=== PATIENT | female | born 1970 | race Caucasian/White ===

== ENCOUNTER → 2016-06-18 | Outpatient (CLI) | payer OTHER ==
[~2016-06-18] MED LIST: CHOL1000 PO; CHOL2000 PO; MISCCAP80 PO; NAPR1TAB9 PO; NPR500 PO; SULF800T23 PO
== END | disposition home or self-care (01) ==
LOC: C.LABSPEC 10:30
PROVIDERS: ATTEND Nurse Practitioner Family
DX: R39.9 Unspecified symptoms and signs involving the genitourinary system (principal)

== ENCOUNTER → 2016-06-29 | Outpatient (CLI) | payer OTHER ==
[2016-06-29 16:56] LABS: BASO % 0.4 %; BASO ABS # 0.02 K/uL (0-0.2); COMPLETE YES; EOS % 1.4 %; IG% 0.2 %; LYMPH % 34.2 %; LYMPH ABS # 1.89 K/uL (1.2-3.4); MEAN CELL VOLUME 85.9 fL (80-100); MEAN CORPUSCULAR HEMOGLOBIN 28.8 pg (25-34); MEAN CORPUSCULAR HGB CONC 33.6 g/dl (32-36); MEAN PLATELET VOLUME 10.4 fL (7.4-10.4); MONO % 10.3 %; NEUT % 53.5 %; PLATELET COUNT 332 K/uL (130-400); RED BLOOD COUNT 4.89 M/uL (4.2-5.4); WHITE BLOOD COUNT 5.53 K/uL (4.8-10.8)
[2016-06-29 17:07] LABS: BLOOD UREA NITROGEN 9 mg/dl (7-18); BUN/CREATININE RATIO 11.2 (10-20); CALCIUM 8.9 mg/dl (8.5-10.1); CARBON DIOXIDE 28 mmol/L (21-32); CHLORIDE 104 mmol/L (98-107); CREATININE 0.82 mg/dl (0.60-1.20); GLUCOSE 104 mg/dl (70-99); POTASSIUM 4.2 mmol/L (3.5-5.1); SODIUM 141 mmol/L (136-145)
[2016-07-02 13:53] LABS: MICROSOMAL AB 2 IU/ML (<9)
== END | disposition home or self-care (01) ==
LOC: C.LABBC 14:55
PROVIDERS: ATTEND Family Medicine
DX: E04.0 Nontoxic diffuse goiter (principal); E55.9 Vitamin D deficiency, unspecified; G47.00 Insomnia, unspecified

== ENCOUNTER → 2016-07-03 | Outpatient (CLI) | payer OTHER ==
--- NOTE | 2016-07-03 13:51 | DIAGNOSTIC IMAGING REPORT ---
ULTRASOUND OF THE THYROID GLAND CLINICAL HISTORY: Thyroid goiter. COMPARISON STUDY: CT scan of the neck dated 01/29/2011. TECHNIQUE: Real-time, grayscale, and color flow sonography of the thyroid gland is performed utilizing a high-frequency linear transducer. Images are reviewed in the transverse and longitudinal planes. FINDINGS: Right lobe: The right lobe of the thyroid gland is normal in size and homogeneous in echotexture, measuring 4.5 x 2.2 x 1.8 cm. Left lobe: The left lobe of the thyroid gland is normal in size and homogeneous in echotexture, measuring 4.3 x 1.8 x 1.9 cm. A hyperechoic nodule in the posterior lower pole measures 0.5 x 0.3 x 0.5 cm. Isthmus: The thyroid isthmus is normal in appearance and measures 0.4 cm in AP diameter. IMPRESSION: 1. The thyroid gland is normal in size and echotexture. 2. A subcentimeter hyperechoic nodule is incidentally noted in the left lower pole. This does not meet sonographic criteria for fine-needle aspiration and can be followed sonographically if clinically warranted. Electronically signed by: Rowdy Reynoso M.D. 07/03/2016 1:50 PM Dictated Date/Time: 07/03/2016 1:48 PM
== END | disposition home or self-care (01) ==
LOC: C.ULTR 13:19
PROVIDERS: ATTEND Internal Medicine Geriatric Medicine
DX: E04.0 Nontoxic diffuse goiter (principal)

== ENCOUNTER → 2016-07-10 | Outpatient (CLI) | payer OTHER | END | disposition home or self-care (01) | LOC: C.LABPBG 13:16 | PROVIDERS: ATTEND Obstetrics & Gynecology | DX: F39 Unspecified mood [affective] disorder (principal) ==

== ENCOUNTER → 2016-08-17 | Outpatient (CLI) | payer OTHER ==
--- NOTE | 2016-08-17 15:01 | DIAGNOSTIC IMAGING REPORT ---
Brain MRI WITHOUT CONTRAST HISTORY: Mental status change ALBERTO TECHNIQUE: Multiplanar multisequence MRI of the brain was performed without the use of contrast. COMPARISON STUDY: 05/16/2010 FINDINGS: There are no areas of restricted diffusion to suggest acute infarction. The midline structures are intact. The paranasal sinuses are clear. The mastoid air cells are clear. The ventricles and sulci are within normal limits for age. There is no mass, hematoma, midline shift. The major vascular flow-voids at the skull base are well maintained. IMPRESSION: No acute intracranial abnormality. Electronically signed by: José Antonio Martinez M.D. 08/17/2016 3:00 PM Dictated Date/Time: 08/17/2016 2:58 PM
== END | disposition home or self-care (01) ==
LOC: C.OPENMRI 13:50
PROVIDERS: ATTEND Internal Medicine Geriatric Medicine
DX: R41.82 Altered mental status, unspecified (principal)

== ENCOUNTER 2016-09-18 11:00 | Emergency (ER) | payer OTHER ==
[~2016-09-18] VITALS: Ht 157.5 cm; Wt 70.3 kg
[~2016-09-18 11:00] MED LIST changes: -CHOL1000 PO; -CHOL2000 PO; -MISCCAP80 PO
[2016-09-18 11:09] VITALS: TEMP 36.8; Ht 157.5 cm; Wt 70.3 kg
[2016-09-18] MEDS ORDERED: CHOL2000 PO (11:16)
[2016-09-18] MEDS ORDERED: MISCCAP80 PO (11:16)
[2016-09-18] MEDS ORDERED: CHOL1000 PO (11:16)
[2016-09-18 12:13] LABS: BASO % 0.2 %; BASO ABS # 0.01 K/uL (0-0.2); COMPLETE YES; HEMATOCRIT 43.3 % (37-47); IG% 0.3 %; LYMPH % 27.1 %; LYMPH ABS # 1.59 K/uL (1.2-3.4); MEAN CELL VOLUME 82.3 fL (80-100); MEAN CORPUSCULAR HEMOGLOBIN 28.1 pg (25-34); MEAN CORPUSCULAR HGB CONC 34.2 g/dl (32-36); MEAN PLATELET VOLUME 9.7 fL (7.4-10.4); MONO % 11.6 %; NEUT % 59.8 %; PLATELET COUNT 299 K/uL (130-400); RED BLOOD COUNT 5.26 M/uL (4.2-5.4); WHITE BLOOD COUNT 5.87 K/uL (4.8-10.8)
[2016-09-18 12:30] LABS: ALT/SGPT 56 U/L (12-78); BLOOD UREA NITROGEN 12 mg/dl (7-18); BUN/CREATININE RATIO 15.7 (10-20); CALCIUM 9.3 mg/dl (8.5-10.1); CARBON DIOXIDE 29 mmol/L (21-32); CHLORIDE 106 mmol/L (98-107); CREATININE 0.77 mg/dl (0.60-1.20); GLUCOSE 102 mg/dl (70-99); SODIUM 141 mmol/L (136-145)
[2016-09-18 12:32] LABS: ALKALINE PHOSPHATASE 103 U/L (45-117); AST/SGOT 30 U/L (15-37)
--- NOTE | 2016-09-18 12:32 | DIAGNOSTIC IMAGING REPORT ---
FLUOROSCOPIC IMAGES OF THE LUMBAR SPINE CLINICAL HISTORY: Lower back pain. COMPARISON: Lumbar spine radiographs June 06, 2011. FLUOROSCOPY TIME: FINDINGS: Alignment of lumbar spine is anatomic. There is no fracture or suspicious lesion. Mild endplate osteophytosis is noted at several levels. IMPRESSION: 1. No lumbar spine fracture or subluxation. 2. Mild multilevel degenerative disc disease and facet arthrosis of the lumbar spine. Electronically signed by: Erasmo Carrillo M.D. 09/18/2016 12:31 PM Dictated Date/Time: 09/18/2016 12:30 PM
[2016-09-18 14:09] VITALS: BP 129/81; PULSE 68; O2SAT 98
--- NOTE | 2016-09-18 17:49 | EMERGENCY ROOM VISIT NOTE ---
History Report prepared by Adan: Lillian Bernabe Under the Supervision of: Dr. Lemuel Mckeon D.O. First contact with patient: 11:42 Chief Complaint: LEG PAIN,LEG INJURY Stated Complaint: LEG PAIN, BUTT PAIN, SICK IN STOMACH History of Present Illness The patient is a 46 year old female who presents to the Emergency Room with complaints of worsening leg pain in the past month. She has had leg pain for the past 7 years, but it has worsened in the past month. She reports diaphoresis with the pain. She has lower energy and her legs ache to walk. Her knees feel weak and she has the pain on the bottoms of her feet. There is a rash on her rear and she has pain when she bends over in her bilateral gluteus muscles. She has some lower back pain which might be arthritis. She also has left wrist pain. She denies any focal weakness, fever, dysuria, or numbness in groin. She is able to move her bowels and urinate normally. She was checked for Lyme recently which was negative. She denies any history of diabetes. She does follow with dermatology. She has a previous diagnosis of fibromyalgia. Source of History: patient Onset: 1 month Position: leg (bilateral) Timing: worsening Modifying Factors (Worsening): other (walking) Associated Symptoms: + diaphoresis, + rash Note: Pt reports low energy, weak knees, foot pain. Review of Systems See HPI for pertinent positives & negatives. A total of 10 systems reviewed and were otherwise negative. Past Medical & Surgical Medical Problems: (1) Celiac disease Family History No pertinent family history stated. Social History Smoking Status: Never Smoker Alcohol Use: none Marital Status: Occupation Status: employed Current/Historical Medications Scheduled Cholecalciferol (Vitamin D3), 4,000 CAP PO DAILY Probiotic Product (Probiotic), 1 CAP PO DAILY Allergies Coded Allergies: No Known Allergies (Unverified , 09/18/16) Physical Exam Vital Signs Date Time Temp Pulse Resp B/P Pulse Ox O2 Delivery O2 Flow Rate FiO2 09/18/16 14:09 68 14 129/81 98 09/18/16 12:32 78 14 119/64 99 Room Air 09/18/16 11:09 36.8 112 18 118/82 97 Room Air Physical Exam GENERAL: sitting up in bed, alert, well appearing, well nourished, no distress, non-toxic EYE EXAM: normal conjunctiva OROPHARYNX: no exudate, no erythema, lips, buccal mucosa, and tongue normal and mucous membranes are moist NECK: supple, no nuchal rigidity, no adenopathy, non-tender LUNGS: Clear to auscultation. Normal chest wall mechanics HEART: no murmurs, S1 normal and S2 normal ABDOMEN: abdomen soft, non-tender, normo-active bowel sounds, no masses, no rebound or guarding. BACK: Back is symmetrical on inspection and there is no deformity, no midline tenderness, no CVA tenderness. SKIN: no rashes and no bruising UPPER EXTREMITIES: upper extremities are grossly normal. LOWER EXTREMITIES: Flexion/extension of hip, knee, ankle, EHL 5/5 bilaterally. Patellar, Achilles reflexes 2/4. Gross sensation intact. DP 2/4. NEURO EXAM: Normal sensorium, cranial nerves II-XII grossly intact, normal speech, no gross weakness of arms, no weakness of legs. Medical Decision & Procedures ER Provider Diagnostic Interpretation: Xray results as stated below per radiologists and my interpretation. FLUOROSCOPIC IMAGES OF THE LUMBAR SPINE CLINICAL HISTORY: Lower back pain. COMPARISON: Lumbar spine radiographs June 06, 2011. FLUOROSCOPY TIME: FINDINGS: Alignment of lumbar spine is anatomic. There is no fracture or suspicious lesion. Mild endplate osteophytosis is noted at several levels. IMPRESSION: 1. No lumbar spine fracture or subluxation. 2. Mild multilevel degenerative disc disease and facet arthrosis of the lumbar spine. Electronically signed by: Erasmo Carrillo M.D. 09/18/2016 12:31 PM Dictated Date/Time: 09/18/2016 12:30 PM Laboratory Results 09/18/16 12:05 Red Blood Count 5.26, Mean Corpuscular Volume 82.3, Mean Corpuscular Hemoglobin 28.1, Mean Corpuscular Hemoglobin Concent 34.2, Mean Platelet Volume 9.7, Neutrophils (%) (Auto) 59.8, Lymphocytes (%) (Auto) 27.1, Monocytes (%) (Auto) 11.6, Eosinophils (%) (Auto) 1.0, Basophils (%) (Auto) 0.2, Neutrophils # (Auto ) 3.51, Lymphocytes # (Auto) 1.59, Monocytes # (Auto) 0.68, Eosinophils # (Auto ) 0.06, Basophils # (Auto) 0.01 09/18/16 12:05 Test 09/18/16 12:05 White Blood Count 5.87 K/uL (4.8-10.8) Red Blood Count 5.26 M/uL (4.2-5.4) Hemoglobin 14.8 g/dL (12.0-16.0) Hematocrit 43.3 % (37-47) Mean Corpuscular Volume 82.3 fL (80-100) Mean Corpuscular Hemoglobin 28.1 pg (25-34) Mean Corpuscular Hemoglobin Concent 34.2 g/dl (32-36) Platelet Count 299 K/uL (130-400) Mean Platelet Volume 9.7 fL (7.4-10.4) Neutrophils (%) (Auto) 59.8 % Lymphocytes (%) (Auto) 27.1 % Monocytes (%) (Auto) 11.6 % Eosinophils (%) (Auto) 1.0 % Basophils (%) (Auto) 0.2 % Neutrophils # (Auto) 3.51 K/uL (1.4-6.5) Lymphocytes # (Auto) 1.59 K/uL (1.2-3.4) Monocytes # (Auto) 0.68 K/uL (0.11-0.59) Eosinophils # (Auto) 0.06 K/uL (0-0.5) Basophils # (Auto) 0.01 K/uL (0-0.2) RDW Standard Deviation 38.6 fL (36.4-46.3) RDW Coefficient of Variation 12.8 % (11.5-14.5) Immature Granulocyte % (Auto) 0.3 % Immature Granulocyte # (Auto) 0.02 K/uL (0.00-0.02) Anion Gap 6.0 mmol/L (3-11) Est Creatinine Clear Calc Drug Dose 83.9 ml/min Estimated GFR () 107.3 Estimated GFR (Non- 92.6 BUN/Creatinine Ratio 15.7 (10-20) Calcium Level 9.3 mg/dl (8.5-10.1) Total Bilirubin 0.3 mg/dl (0.2-1) Direct Bilirubin < 0.1 mg/dl (0-0.2) Aspartate Amino Transf (AST/SGOT) 30 U/L (15-37) Alanine Aminotransferase (ALT/SGPT) 56 U/L (12-78) Alkaline Phosphatase 103 U/L (45-117) Total Protein 7.8 gm/dl (6.4-8.2) Albumin 3.8 gm/dl (3.4-5.0) Laboratory results per my review. ED Course ED COURSE: Vital signs were reviewed and showed tachycardia. The patients medical record was reviewed The above diagnostic studies were performed and reviewed. ED treatments and interventions as stated above. 1145: The patient was evaluated in room C8. A complete history and physical examination was performed. 1350: Upon reevaluation, the patient is resting comfortably.I discussed my findings with the patient and she understands and agrees with the treatment plan. Based on the patients age, coexisting illnesses, exam and lab findings the decision to treat as an outpatient was made. The patient remained stable while under my care. The patient appeared well at the time of discharge. Medical Decision Patient is a 46-year-old female who presents the ER for persistent pain which is been present for the past 7 years but worse over the past month. Pain is located on her bilateral feet. She also notes that when she bends over she gets pain in her bilateral gluteus muscles. No back pain at this time. She has been tested for Lyme disease which was negative. She follows with rheumatology. Neurologic exam is completely intact. X-rays of the back were unremarkable. No history of cancer, IV drug use or recent trauma. She is not diabetic. Labs: CBC and BMP were unremarkable. With recent Lyme testing I did not repeat this. At this time I did not feel the benefit of any additional imaging. Uncertain of the true cause of her myalgias and arthralgias but recommended following up with rheumatology as this appears to be a protracted course. She has no bowel or bladder issues. No signs of cauda equina. Discussed with Pt concerning signs and symptoms to watch out for. Pt was instructed to follow up with their PCP and discussed with the patient their option to return to the ED at anytime for persistent or worsening symptoms. The appropriate anticipatory guidance and out-patient management, including indications for return to the emergency department, were explained at length to the patient and understood. Impression Primary Impression: Myalgia Additional Impression: Arthralgia Scribe Attestation The scribe's documentation has been prepared under my direction and personally reviewed by me in its entirety. I confirm that the note above accurately reflects all work, treatment, procedures, and medical decision making performed by me. Departure Information Dispostion Home / Self-Care Referrals Brian Tena D.O. (PCP) Forms HOME CARE DOCUMENTATION FORM, IMPORTANT VISIT INFORMATION Patient Instructions ED Joint Pain, My [facility] Additional Instructions Please follow up with your primary care doctor with in the next 24 hours. Any worsening of your symptoms, please return to the ED immediately. This includes fevers greater than 100.4, worsening pain, passing out, persistent nausea vomiting, or any other concerning signs or symptoms from your standpoint. Problem Qualifiers Additional Impression: Arthralgia Joint pain location: unspecified Qualified Codes: M25.50 - Pain in unspecified joint
== END 2016-09-18 14:11 | disposition home or self-care (01) ==
LOC: C.EDB 11:02 → C.EDC 14:11
DX: M79.1 Myalgia (principal); M25.50 Pain in unspecified joint; K90.0 Celiac disease; Z79.899 Other long term (current) drug therapy

== ENCOUNTER → 2016-10-13 | Outpatient (CLI) | payer OTHER ==
[~2016-10-13] MED LIST changes: +CHOL2000 PO; +MISCCAP80 PO; -NAPR1TAB9 PO; -NPR500 PO; -SULF800T23 PO
[2016-10-18 16:11] LABS: ANTI-CENTROMERE AB <1.0 NEG AI (<1.0 NEG); ANTI-SS-A <1.0 NEG AI (<1.0 NEG); ANTI-SS-B <1.0 NEG AI (<1.0 NEG); DNA ds CRITHIDIA NEGATIVE (NEGATIVE); MICROSOMAL AB 2 IU/ML (<9); Sm Antibody <1.0 NEG AI (<1.0 NEG)
== END | disposition home or self-care (01) ==
LOC: C.LAB1850 14:18
PROVIDERS: ATTEND Internal Medicine Infectious Disease
DX: L73.9 Follicular disorder, unspecified (principal); M13.0 Polyarthritis, unspecified

== ENCOUNTER → 2017-02-09 | Outpatient (CLI) | payer OTHER ==
--- NOTE | 2017-02-09 14:38 | DIAGNOSTIC IMAGING REPORT ---
THYROID ULTRASOUND CLINICAL HISTORY: Neck pain. Dysphagia. COMPARISON STUDY: Thyroid ultrasound July 03, 2016. TECHNIQUE: Sonography of the thyroid gland was performed. FINDINGS: The right thyroid lobe measures 4.9 x 1.7 x 1.6 cm and the left lobe measures 5 x 1.7 x 1.5 cm. There are no right lobe thyroid nodules. A 0.5 x 0.5 x 0.3 cm echogenic nodule within the lower pole of the left thyroid lobe is unchanged since ultrasound of July 03, 2016. IMPRESSION: No change in a 5 mm echogenic left lobe nodule since ultrasound of July 03, 2016. This nodule does not meet criteria for biopsy. Electronically signed by: Erasmo Carrillo M.D. 02/09/2017 2:37 PM Dictated Date/Time: 02/09/2017 2:35 PM
== END | disposition home or self-care (01) ==
LOC: C.ULTR 13:51
PROVIDERS: ATTEND Neuromusculoskeletal Medicine & OMM
DX: M54.2 Cervicalgia (principal); R13.10 Dysphagia, unspecified

== ENCOUNTER → 2017-02-18 | Outpatient (CLI) | payer OTHER ==
--- NOTE | 2017-02-18 08:52 | DIAGNOSTIC IMAGING REPORT ---
(BARIUM SWALLOW) ESOPHAGUS CLINICAL HISTORY: Difficulty swallowing. COMPARISON STUDY: None. FLUOROSCOPY TIME: 1.5 minutes. 22 fluoroscopic spot images submitted.. FINDINGS: The patient swallowed barium without difficulty. The esophagus is normal in course, caliber, motility. No hiatus hernia. No gastroesophageal reflux. The barium tablet passed without difficulty. The contours of the hypopharynx are within normal limits. IMPRESSION: Normal barium swallow. Electronically signed by: Popeye Conde M.D. 02/18/2017 8:50 AM Dictated Date/Time: 02/18/2017 8:49 AM
== END | disposition home or self-care (01) ==
LOC: C.RAD 08:25
PROVIDERS: ATTEND Neuromusculoskeletal Medicine & OMM
DX: R13.10 Dysphagia, unspecified (principal)

== ENCOUNTER → 2017-04-16 | Outpatient (CLI) | payer OTHER ==
[2017-04-16 12:30] LABS: BASO % 0.2 %; BASO ABS # 0.02 K/uL (0-0.2); COMPLETE YES; EOS % 1.3 %; HEMATOCRIT 43.4 % (37-47); IG% 0.2 %; LYMPH % 20.4 %; LYMPH ABS # 1.73 K/uL (1.2-3.4); MEAN CELL VOLUME 86.8 fL (80-100); MEAN CORPUSCULAR HEMOGLOBIN 28.8 pg (25-34); MEAN CORPUSCULAR HGB CONC 33.2 g/dl (32-36); NEUT % 69.9 %; PLATELET COUNT 330 K/uL (130-400); WHITE BLOOD COUNT 8.47 K/uL (4.8-10.8)
[2017-04-16 13:01] LABS: ALT/SGPT 44 U/L (12-78); AST/SGOT 24 U/L (15-37); BLOOD UREA NITROGEN 10 mg/dl (7-18); BUN/CREATININE RATIO 10.7 (10-20); CALCIUM 9.1 mg/dl (8.5-10.1); CARBON DIOXIDE 29 mmol/L (21-32); CHLORIDE 104 mmol/L (98-107); CHOLESTEROL 190 mg/dl (0-200); CREATININE 0.89 mg/dl (0.60-1.20); GLUCOSE 99 mg/dl (70-99); POTASSIUM 4.5 mmol/L (3.5-5.1); SODIUM 138 mmol/L (136-145); TRIGLYCERIDES 671 mg/dl (0-150)
[2017-04-16 13:02] LABS: ESTIMATED AVERAGE GLUCOSE 108 mg/dl; HA1C FLAG Normal (Normal)
[2017-04-16 13:11] LABS: ALKALINE PHOSPHATASE 112 U/L (45-117); CHOLESTEROL/HDL RATIO 5.8; HDL CHOLESTEROL 33 mg/dl
== END | disposition home or self-care (01) ==
LOC: C.LABPBG 07:43
PROVIDERS: ATTEND Neuromusculoskeletal Medicine & OMM
DX: Z00.00 Encounter for general adult medical examination without abnormal findings (principal); E66.3 Overweight

== ENCOUNTER → 2017-06-23 | Outpatient (CLI) | payer OTHER | END | disposition home or self-care (01) | LOC: C.PAPS 09:32 | PROVIDERS: ATTEND Obstetrics & Gynecology | DX: Z12.4 Encounter for screening for malignant neoplasm of cervix (principal); Z11.51 Encounter for screening for human papillomavirus (HPV) ==

== ENCOUNTER → 2017-08-10 | Outpatient (CLI) | payer OTHER ==
[2017-08-10 16:02] LABS: FOLLICLE STIMULAT HORMONE 8.49 IU/L
== END | disposition home or self-care (01) ==
LOC: C.LAB1850 14:23
PROVIDERS: ATTEND Obstetrics & Gynecology
DX: N64.4 Mastodynia (principal)

== ENCOUNTER 2017-12-31 10:21 | Emergency (ER) | payer OTHER ==
[~2017-12-31] VITALS: Ht 157.5 cm; Wt 76.3 kg
[2017-12-31 10:32] VITALS: TEMP 36.6; Ht 157.5 cm; Wt 76.3 kg
[2017-12-31 11:31] LABS: BASO % 0.5 %; BASO ABS # 0.03 K/uL (0-0.2); EOS % 1.4 %; EOS ABS # 0.08 K/uL (0-0.5); IG# 0.02 K/uL (0.00-0.02); LYMPH % 29.8 %; LYMPH ABS # 1.76 K/uL (1.2-3.4); MEAN CELL VOLUME 84.3 fL (80-100); MEAN CORPUSCULAR HEMOGLOBIN 28.1 pg (25-34); MEAN CORPUSCULAR HGB CONC 33.3 g/dl (32-36); MONO % 6.3 %; MONO ABS # 0.37 K/uL (0.11-0.59); NEUT % 61.7 %; NEUT ABS # 3.65 K/uL (1.4-6.5); PLATELET COUNT 333 K/uL (130-400); RED CELL DISTRIBUTION WIDTH CV 13.6 % (11.5-14.5); RED CELL DISTRIBUTION WIDTH SD 41.5 fL (36.4-46.3); WHITE BLOOD COUNT 5.91 K/uL (4.8-10.8)
[2017-12-31 11:51] LABS: ALBUMIN 3.7 gm/dl (3.4-5.0); CALCIUM 8.9 mg/dl (8.5-10.1); CREATININE 0.85 mg/dl (0.60-1.20); POTASSIUM 3.8 mmol/L (3.5-5.1)
--- NOTE | 2017-12-31 13:04 | DIAGNOSTIC IMAGING REPORT ---
PELVIC COMPLETE NON OB CLINICAL HISTORY: PELVIC PAIN X 4 WEEKS PAIN COMPARISON STUDY: 08/11/2010 FINDINGS: The uterus measured surgically absent. The endometrial stripe measured . The right ovary measured 2.9 cm with normal vascular flow. 1 cm complex ovarian cyst.. The left ovary measured maximum dimension 4.7 cm including a 1.6 cm x 2.5 cm cyst. Normal vascular flow. There is no ultrasonographic evidence of ovarian torsion. It should be noted that ovarian torsion can be present with normal Doppler ultrasonographic findings. There was no evidence of pathologic free pelvic fluid. IMPRESSION: 1. Prior uterine resection. 2. 2.5 cm left ovarian cyst. 3. 1 cm complex right ovarian cyst. The above report was generated using voice recognition software. It may contain grammatical, syntax or spelling errors. Electronically signed by: José Antonio Martinez M.D. 12/31/2017 1:02 PM Dictated Date/Time: 12/31/2017 1:00 PM
--- NOTE | 2017-12-31 14:32 | DIAGNOSTIC IMAGING REPORT ---
CT ABD/PELVIS IV AND ORAL CONT CLINICAL HISTORY: Epigastric abdominal pain COMPARISON STUDY: 02/16/2008 TECHNIQUE: Following the IV administration of 117 mL of Optiray-320, CT scan of the abdomen and pelvis was performed from the lung bases to the proximal femurs. Images are reviewed in the axial, sagittal, and coronal planes. IV contrast was administered without complication. A dose lowering technique was utilized adhering to the principles of ALARA. CT DOSE: 411.17 mGy.cm FINDINGS: Lower chest: The heart is normal in size and configuration, without pericardial effusion. The lung bases and pleural spaces are clear. Liver: There is mild hepatic steatosis. No focal masses are visualized. Gallbladder: Unremarkable. Spleen: Normal in size and attenuation. Pancreas: There is no pancreatic ductal dilatation. There is slight heterogeneous enhancement of the pancreatic head but no discrete mass is evident on CT scanning. There is no definitive evidence of pancreatitis. Adrenal glands: Unremarkable. Kidneys: There is symmetric renal cortical enhancement. The kidneys are normal in size without hydronephrosis. Bowel: There are no transition zones indicate bowel obstruction. There is no acute diverticulitis. The appendix is not visualized with certainty. There are no findings to indicate acute appendicitis. Peritoneum: There is prominent pelvic fat with peripheral septations. This could represent a lipoma. Vasculature: The abdominal aorta is normal in course and caliber. Adenopathy: None. Pelvic viscera: The uterus is surgically absent. There is a 3.5 cm left ovarian cyst/follicle. Skeletal structures: No destructive osseous lesions are seen. IMPRESSION: 1. No evidence of bowel obstruction. No evidence of free air 2. Surgically absent uterus. 3.5 mm left ovarian cyst/follicle 3. Prominent pelvic fat, and pelvic lipomatosis versus lipoma. 4. No evidence of acute diverticulitis. No evidence of acute appendicitis. Electronically signed by: Javi Renee M.D. 12/31/2017 2:31 PM Dictated Date/Time: 12/31/2017 2:24 PM
--- NOTE | 2017-12-31 15:00 | EMERGENCY ROOM VISIT NOTE ---
History First contact with patient: 10:41 Chief Complaint: ABDOMINAL PAIN Stated Complaint: BELLY AND LEG PAIN Nursing Triage Summary: Mid abdominal pain for 4-5 weeks sometimes associated with nausea and diarrhea. Patient states her legs also ache. History of Present Illness Patient is a 47-year-old female who presents the emergency department for evaluation of lower abdominal pain radiating tops of her legs over the last 4 weeks. Patient describes constant, bloating pain in the lower abdomen with associated nausea and diarrhea. She states that she feels full when she leans over. Pain is worse with certain positions, and increases after she has been sitting for a long period of time. She is tried anti-inflammatories, muscle relaxers and nausea medications. She has been seen by multiple providers in multiple different places including her primary care provider who did a KUB x- ray and tested her for Lyme disease which was negative. She had an abdominal ultrasound after being seen by [facility] which was negative. She was also seen by an [facility] in [place] who scheduled a pelvic ultrasound in about a week and a half. She was seen in the emergency department at [facility] as well. She is status post vaginal hysterectomy, she has does still have both of her ovaries. She denies any vaginal discharge. No urinary symptoms. She has had a colonoscopy in the past, none recently. Patient reports that she was scheduled for some type of outpatient ultrasound at our facility today which was canceled but the patient was not notified of this. She presently rates her pain a 10/10. Review of Systems Review of systems as per HPI. All other systems reviewed were negative. 10 systems reviewed. Past Medical/Surgical History Medical Problems: (1) Anxiety State Nos (2) Arthralgia (3) Arthralgia (4) Celiac disease (5) Esophageal Reflux (6) Myalgia (7) Myalgia Surgical Problems: (1) History of vaginal hysterectomy (2) Hx of tonsillectomy Electronic medical records are reviewed and summarized as above/below. See Problem List. Social History Smoking Status: Never Smoker Alcohol Use: none Marital Status: Occupation Status: employed Current/Historical Medications Scheduled Cholecalciferol (Vitamin D3), 4,000 CAP PO DAILY Probiotic Product (Probiotic), 1 CAP PO DAILY Physical Exam Vital Signs Date Time Temp Pulse Resp B/P (MAP) Pulse Ox O2 Delivery O2 Flow Rate FiO2 12/31/17 15:14 84 16 116/76 100 12/31/17 14:25 88 18 114/77 98 Room Air 12/31/17 12:25 84 18 139/84 98 Room Air 12/31/17 10:32 36.6 90 18 145/92 99 Room Air Physical Exam CONSTITUTIONAL: Patient is a pleasant, well-appearing 47-year-old female who is awake and alert and in no acute distress. EYES: Pupils equal, round, reactive to light and accommodation. EOMs intact without nystagmus. Sclera are anicteric. ENT: Tympanic membranes intact, with normal landmarks. External canals are clear. Oral and nasopharynx are clear. Mucous membranes are moist, no lesions , tongue and gums appear normal. NECK: Supple without lymphadenopathy. No thyromegaly. No meningeal signs. Full active range of motion without discomfort. CARDIOVASCULAR: Regular rate and rhythm, with normal S1 and S2, no murmur or gallop or rub is heard. No carotid bruits auscultated. No JVD. Peripheral pulses easily palpable. RESPIRATORY: Breath sounds equal and clear to auscultation without wheezes, rales, or rhonchi heard. Full and equal chest expansion without accessory muscle use or retractions. ABDOMEN: Bowel sounds are present. Abdomen is soft, nondistended, nontender to palpation throughout, no guarding, rebound or rigidity. There is no CVA tenderness. No pain in the right lower quadrant over McBurney's point. INTEGUMENTARY: No lesions or rash, normal skin turgor. LYMPH: No lymphadenopathy. Medical Decision & Procedures ER Provider Diagnostic Interpretation: PELVIC COMPLETE NON OB CLINICAL HISTORY: PELVIC PAIN X 4 WEEKS PAIN COMPARISON STUDY: 08/11/2010 FINDINGS: The uterus measured surgically absent. The endometrial stripe measured . The right ovary measured 2.9 cm with normal vascular flow. 1 cm complex ovarian cyst.. The left ovary measured maximum dimension 4.7 cm including a 1.6 cm x 2.5 cm cyst. Normal vascular flow. There is no ultrasonographic evidence of ovarian torsion. It should be noted that ovarian torsion can be present with normal Doppler ultrasonographic findings. There was no evidence of pathologic free pelvic fluid. IMPRESSION: 1. Prior uterine resection. 2. 2.5 cm left ovarian cyst. 3. 1 cm complex right ovarian cyst. CT ABD/PELVIS IV AND ORAL CONT CLINICAL HISTORY: Epigastric abdominal pain COMPARISON STUDY: 02/16/2008 TECHNIQUE: Following the IV administration of 117 mL of Optiray-320, CT scan of the abdomen and pelvis was performed from the lung bases to the proximal femurs. Images are reviewed in the axial, sagittal, and coronal planes. IV contrast was administered without complication. A dose lowering technique was utilized adhering to the principles of ALARA. CT DOSE: 411.17 mGy.cm FINDINGS: Lower chest: The heart is normal in size and configuration, without pericardial effusion. The lung bases and pleural spaces are clear. Liver: There is mild hepatic steatosis. No focal masses are visualized. Gallbladder: Unremarkable. Spleen: Normal in size and attenuation. Pancreas: There is no pancreatic ductal dilatation. There is slight heterogeneous enhancement of the pancreatic head but no discrete mass is evident on CT scanning. There is no definitive evidence of pancreatitis. Adrenal glands: Unremarkable. Kidneys: There is symmetric renal cortical enhancement. The kidneys are normal in size without hydronephrosis. Bowel: There are no transition zones indicate bowel obstruction. There is no acute diverticulitis. The appendix is not visualized with certainty. There are no findings to indicate acute appendicitis. Peritoneum: There is prominent pelvic fat with peripheral septations. This could represent a lipoma. Vasculature: The abdominal aorta is normal in course and caliber. Adenopathy: None. Pelvic viscera: The uterus is surgically absent. There is a 3.5 cm left ovarian cyst/follicle. Skeletal structures: No destructive osseous lesions are seen. IMPRESSION: 1. No evidence of bowel obstruction. No evidence of free air 2. Surgically absent uterus. 3.5 mm left ovarian cyst/follicle 3. Prominent pelvic fat, and pelvic lipomatosis versus lipoma. 4. No evidence of acute diverticulitis. No evidence of acute appendicitis. Laboratory Results 12/31/17 11:10 Red Blood Count 4.98, Mean Corpuscular Volume 84.3, Mean Corpuscular Hemoglobin 28.1, Mean Corpuscular Hemoglobin Concent 33.3, Mean Platelet Volume 10.0, Neutrophils (%) (Auto) 61.7, Lymphocytes (%) (Auto) 29.8, Monocytes (%) (Auto) 6.3, Eosinophils (%) (Auto) 1.4, Basophils (%) (Auto) 0.5, Neutrophils # (Auto) 3.65, Lymphocytes # (Auto) 1.76, Monocytes # (Auto) 0.37, Eosinophils # (Auto) 0.08, Basophils # (Auto) 0.03 12/31/17 11:10 Test 12/31/17 10:55 12/31/17 11:10 Urine Test NEG (NEG) White Blood Count 5.91 K/uL (4.8-10.8) Red Blood Count 4.98 M/uL (4.2-5.4) Hemoglobin 14.0 g/dL (12.0-16.0) Hematocrit 42.0 % (37-47) Mean Corpuscular Volume 84.3 fL (80-100) Mean Corpuscular Hemoglobin 28.1 pg (25-34) Mean Corpuscular Hemoglobin Concent 33.3 g/dl (32-36) Platelet Count 333 K/uL (130-400) Mean Platelet Volume 10.0 fL (7.4-10.4) Neutrophils (%) (Auto) 61.7 % Lymphocytes (%) (Auto) 29.8 % Monocytes (%) (Auto) 6.3 % Eosinophils (%) (Auto) 1.4 % Basophils (%) (Auto) 0.5 % Neutrophils # (Auto) 3.65 K/uL (1.4-6.5) Lymphocytes # (Auto) 1.76 K/uL (1.2-3.4) Monocytes # (Auto) 0.37 K/uL (0.11-0.59) Eosinophils # (Auto) 0.08 K/uL (0-0.5) Basophils # (Auto) 0.03 K/uL (0-0.2) RDW Standard Deviation 41.5 fL (36.4-46.3) RDW Coefficient of Variation 13.6 % (11.5-14.5) Immature Granulocyte % (Auto) 0.3 % Immature Granulocyte # (Auto) 0.02 K/uL (0.00-0.02) Anion Gap 7.0 mmol/L (3-11) Est Creatinine Clear Calc Drug Dose 78.3 ml/min Estimated GFR () 94.6 Estimated GFR (Non- 81.6 BUN/Creatinine Ratio 13.1 (10-20) Calcium Level 8.9 mg/dl (8.5-10.1) Total Bilirubin 0.3 mg/dl (0.2-1) Aspartate Amino Transf (AST/SGOT) 27 U/L (15-37) Alanine Aminotransferase (ALT/SGPT) 39 U/L (12-78) Alkaline Phosphatase 93 U/L (45-117) Total Protein 8.0 gm/dl (6.4-8.2) Albumin 3.7 gm/dl (3.4-5.0) Globulin 4.3 gm/dl (2.5-4.0) Albumin/Globulin Ratio 0.9 (0.9-2) Lipase 124 U/L (73-393) ED Course The patient was seen and evaluated as above. Her old records were reviewed. She presents the emergency department for evaluation of ongoing lower abdominal pain that has been evaluated by her primary care provider, gastroenterology and gynecology. IV lock was initiated and laboratory studies were collected. CBC with differential, CMP and lipase were drawn. Urine sample was provided was dipped and was clean. Given the duration of her symptoms, pelvic ultrasound and CT scan of the abdomen and pelvis with oral and IV contrast was ordered. Laboratory studies were completely unremarkable. White count is normal. No left shift or bandemia. She is not anemic. Electrolytes, renal functions, liver functions and lipase are all within normal limits. Pelvic ultrasound noted postsurgical changes, a 2 half centimeter left ovarian cyst and a 1 cm complex right ovarian cyst. CT scan of the abdomen and pelvis with contrast again noted the ovarian cyst, otherwise was unremarkable without any evidence for bowel obstruction, free air or acute infectious or inflammatory findings. The patient was made aware of the results of all of her laboratory and diagnostic imaging studies. Given the ovarian cyst, she was encouraged to follow-up with gynecology for further care and management of her symptoms. Differential diagnoses entertained included UTI, renal colic, diverticulitis, bowel obstruction, perforation, mass or malignancy, ovarian cyst, endometriosis , scarring or adhesions, ovarian torsion, colitis, enteritis, among others. Medical Decision See ED Course. Medication Reconcilliation Current Medication List: was personally reviewed by me Blood Pressure Screening Patient's blood pressure: Normal blood pressure Blood pressure disposition: Did not require urgent referral Impression Primary Impression: Pelvic pain Additional Impression: Ovarian cyst, bilateral Departure Information Referrals Brian Tena D.O. (PCP) Patient Instructions [facility] Additional Instructions Ibuprofen(Motrin, Advil) may be used for fever or pain. Use 600mg every six hours as needed. Take with food. Avoid using more than 2400mg in a 24 hour period. Do not use 2400mg per day for more than three consecutive days without physician direction. Prolonged inappropriate use can lead to stomach upset or ulcers. (AND/OR) Acetaminophen(Tylenol) may be used for fever or pain. Use 1000mg every six hours as needed. Avoid using more than 3000mg in a 24 hour period. Heating pad to the abdomen as needed for discomfort. Rest and drink plenty of fluids as tolerated. Slow sips of water or sports drinks are recommended instead of large amounts all at once. Continue current medications. Once your stomach is settled start with a clear liquid diet (jello, soup broth, etc.) and then advance as tolerated. You should avoid full, heavy meals for about 24 hrs from the time your symptoms resolved. Return to the ER immediately for worsening or persistent abdominal pain, vomiting, fevers, chest pains, difficulty breathing, black or bloody stools, worsening of your condition, or as needed. Follow up with your primary physician in 1-2 days for a recheck of your current condition. Follow up with [facility] for further care and evaluation symptoms. Problem Qualifiers
[2017-12-31 15:14] VITALS: BP 116/76; PULSE 84; O2SAT 100
== END 2017-12-31 15:15 | disposition home or self-care (01) ==
LOC: C.EDB 10:22 → C.EDC 15:15
DX: R10.2 Pelvic and perineal pain (principal); N83.201 Unspecified ovarian cyst, right side; N83.202 Unspecified ovarian cyst, left side; R11.0 Nausea; R19.7 Diarrhea, unspecified; K90.0 Celiac disease; K21.9 Gastro-esophageal reflux disease without esophagitis; Z79.899 Other long term (current) drug therapy